=== PATIENT | female | born 1980 | race Caucasian/White ===

== ENCOUNTER 2018-10-29 13:59 | Outpatient (CLI) | payer BC ==
--- NOTE | 2018-10-29 15:47 | ULT ---
LEFT BREAST ULTRASOUND LIMITED: HISTORY: A 38-year-old female with a history of left breast pain. FINDINGS: The left breast is evaluated from the 12 o'clock to 3 o'clock position. In the 12:30 position, 2 cm from the nipple, there is an approximately 0.5 x 0.8 x 1.0 cm diameter somewhat poorly defined area o f slightly altered echogenicity. This appears to be slightly hypoechoic to adjacent breast tissue. This could just represent some slightly more hypoechoic breast tissue. This does not have the typica l appearance of a fibroadenoma, although an atypical fibroadenoma is a possibility. There was no gatito mographic finding noted in this region of the left breast. IMPRESSION: Somewhat poorly defined slightly more hypoechoic solid focus in the left breast at 12:30 position 2 c m from the nipple. Ultrasound-guided biopsy is recommended. Findings were discussed with the patient who was in agreement. Dr. Roman's office could not be reac hed this afternoon, but the patient was instructed to contact Dr. Roman's office on Thursday i n regards to scheduling an ultrasound-guided biopsy. CODE CR POS: OFF
== END 2018-10-29 14:00 | disposition home or self-care (01) ==
LOC: BICMAMMO 13:59
PROVIDERS: ATTEND Family Medicine
DX: N64.4 Mastodynia (principal)
CPT/HCPCS: 77066; G0279

== ENCOUNTER 2018-10-29 15:11 | Outpatient (CLI) | payer BC ==
--- NOTE | 2018-10-29 15:56 | ULT ---
BLADDER ULTRASOUND: Date: 10/29/18 PROVIDED CLINICAL HISTORY: Post-void residual. FINDINGS: Limited sonographic interrogation of the bladder demonstrates a normal sonographic appearance pre-voi d. Pre-void bladder volume is approximately 94 mL. Post-void bladder volume is approximately 1.7 mL. IMPRESSION: As above. POS: [facility]
--- NOTE | 2018-10-29 17:57 | ULT ---
PELVIC ULTRASOUND INCLUDING TRANSABDOMINAL, TRANSVAGINAL AND VASCULAR DUPLEX WITH COLOR AND SPECTRAL DOPPLER IMAGIN10/29/18 HISTORY: 38-year-old female with pelvic pain. The uterus measures 7.4 x 3.4 x 4.3 cm. The endometrium is 0.6 cm in thickness. Right ovary was not s een. Left ovary measures 1.6 x 2.0 x 3.2 cm. There is vascular flow to the right ovary. No evidence f or right ovarian torsion. IUD in place within the uterus. IMPRESSION: IUD in the uterus. No evidence for the significant acute process. Nonvisualized right ovary. POS: OFF
== END 2018-10-29 15:12 | disposition home or self-care (01) ==
LOC: BICULT 15:11
PROVIDERS: ATTEND Family Medicine
DX: N32.81 Overactive bladder (principal); R10.2 Pelvic and perineal pain
CPT/HCPCS: 76856

== ENCOUNTER → 2018-11-05 | Day surgery (SDC) | payer BC ==
--- NOTE | 2018-11-05 11:01 | ULT ---
ULTRASOUND GUIDED LEFT BREAST BIOPSY: DATE: 11/05/2018. PROVIDED CLINICAL HISTORY: Left breast mass. FINDINGS: Informed consent was obtained from the patient. The patient was placed on the sonography table in th e supine position and the area overlying the left breast lesion at 12:30 was prepped and draped in th e usual sterile manner. The soft tissues were infiltrated with 1% buffered Lidocaine. A small skin incision was made. Under continuous ultrasound guidance, a 14-gauge biopsy device was advanced adjac ent to a lesion with multiple core samples obtained. The biopsy device was removed and ultrasound gu idance was utilized to place a biopsy site marker adjacent o the lesion. Biopsy clip deployment julito ce was removed and hemostasis achieved. No immediate complications. Post biopsy mammograms demonstr ate clip deployment. There is no mammographic correlate apparent. IMPRESSION: Technically successful ultrasound-guided left breast biopsy. Correlate with histology results to fol low. POS: OFF
== END ==
LOC: BICULT 07:59
PROVIDERS: ATTEND Family Medicine
PROC: 0HBU3ZX Excision of Left Breast, Percutaneous Approach, Diagnostic (ICD-10-PCS; principal; 2018-11-05)
DX: N64.89 Other specified disorders of breast (principal)
CPT/HCPCS: 19100; 76942; 88305

== ENCOUNTER 2019-02-15 12:44 | Outpatient (CLI) | payer BC ==
--- NOTE | 2019-02-15 13:50 | ULT ---
COMPLETE ABDOMEN ULTRASOUND: INDICATION: A 38-year-old female with abdominal pain. COMPARISON: None. FINDINGS: Aorta, IVC, and pancreas appear within normal limits. No focal hepatic lesion is evident. The gallbladder is normal-appearing. No sonographic Dugan's sign was reported. Common bile duct me asured 2.8 mm. The spleen was normal in appearance measuring 9 cm in length. The right kidney measured 10.5 x 4.4 x 4.1 cm. The left kidney measured 10.5 x 4.0 x 5.0 cm. No focal renal lesion or hydronephrosis is e vident. IMPRESSION: No acute sonographic abnormality is demonstrated. POS: [facility]
== END 2019-02-15 12:45 | disposition home or self-care (01) ==
LOC: BICULT 12:44
PROVIDERS: ATTEND Physician Assistant Medical
DX: K21.9 Gastro-esophageal reflux disease without esophagitis (principal); R10.13 Epigastric pain; R10.33 Periumbilical pain; R19.4 Change in bowel habit
CPT/HCPCS: 76700

== ENCOUNTER 2020-02-14 11:53 | Outpatient (CLI) | payer BC ==
--- NOTE | 2020-02-14 16:11 | MMO ---
Bilateral MAMMO Bilat Screen [facility]. CLINICAL HISTORY: Patient is 39 years old and is seen for screening. The patient has no family history of breast cancer. The patient has no personal history of cancer. The patient has a history of left Ultrasound Guided Core Biopsy in October, - benign. VIEWS: The views performed were: bilateral craniocaudal with tomosynthesis and bilateral mediolateral oblique with tomosynthesis. FILMS COMPARED: The present examination has been compared to prior imaging studies performed at [facility] on 10/31/2015 and 10/29/2018. This study has been interpreted with the assistance of computer-aided detection. MAMMOGRAM FINDINGS: The breasts are heterogeneously dense, which could obscure a lesion on mammography. There is a stable biopsy clip seen in the left breast. There are no suspicious masses, suspicious calcifications, or new areas of architectural distortion. IMPRESSION: THERE IS NO MAMMOGRAPHIC EVIDENCE OF MALIGNANCY. A ROUTINE FOLLOW-UP MAMMOGRAM AT AGE 41 IS RECOMMENDED. THE RESULTS OF THIS EXAM WERE SENT TO THE PATIENT. ACR BI-RADS Category 2 - Benign finding MAMMOGRAPHY NOTE: 1. A negative mammogram report should not delay a biopsy if a dominant of clinically suspicious mass is present. 2. Approximately 10% to 15% of breast cancers are not detected by mammography. 3. Adenosis and dense breasts may obscure an underlying neoplasm. Reported by: FINESSE AMAYA MD Electonically Signed: [id number]
== END 2020-02-14 11:54 | disposition home or self-care (01) ==
LOC: BICMAMMO 11:53
PROVIDERS: ATTEND Family Medicine
DX: Z12.31 Encounter for screening mammogram for malignant neoplasm of breast (principal); Z91.89 Other specified personal risk factors, not elsewhere classified
CPT/HCPCS: 77063; 77067

== ENCOUNTER 2022-09-09 13:27 | Outpatient (CLI) | payer BC | END 2022-09-09 13:28 | disposition home or self-care (01) | LOC: BICMAMMO 13:27 | PROVIDERS: ATTEND Nurse Practitioner Family | DX: Z12.31 Encounter for screening mammogram for malignant neoplasm of breast (principal); Z91.89 Other specified personal risk factors, not elsewhere classified | CPT/HCPCS: 77063; 77067 ==

== ENCOUNTER 2023-11-10 10:55 | Outpatient (CLI) | payer BC | END 2023-11-10 10:56 | disposition home or self-care (01) | LOC: BICMAMMO 10:55 | PROVIDERS: ATTEND Family Medicine | DX: Z12.31 Encounter for screening mammogram for malignant neoplasm of breast (principal); Z91.89 Other specified personal risk factors, not elsewhere classified; Z80.3 Family history of malignant neoplasm of breast | CPT/HCPCS: 77063; 77067 ==

== ENCOUNTER 2024-09-07 11:09 | Outpatient (CLI) | payer BC | END 2024-09-07 11:10 | disposition home or self-care (01) | LOC: BICRAD 11:09 | PROVIDERS: ATTEND Internal Medicine Rheumatology | DX: M46.1 Sacroiliitis, not elsewhere classified (principal); M06.4 Inflammatory polyarthropathy; M25.59 Pain in other specified joint; R76.0 Raised antibody titer | CPT/HCPCS: 72170 ==

== ENCOUNTER 2024-12-13 12:04 | Outpatient (CLI) | payer BC | END 2024-12-13 12:05 | disposition home or self-care (01) | LOC: BICMAMMO 12:04 | PROVIDERS: ATTEND Family Medicine | DX: Z12.31 Encounter for screening mammogram for malignant neoplasm of breast (principal); Z80.3 Family history of malignant neoplasm of breast; Z91.89 Other specified personal risk factors, not elsewhere classified | CPT/HCPCS: 77063; 77067 ==